=== PATIENT | female | born 1970 | race Hispanic/Latino ===

== ENCOUNTER → 2019-11-15 | Outpatient (CLI) | payer OTHER | END | disposition home or self-care (01) | LOC: OIH 07:57 | PROVIDERS: ATTEND Internal Medicine Cardiovascular Disease | DX: Z13.6 Encounter for screening for cardiovascular disorders (principal); K76.0 Fatty (change of) liver, not elsewhere classified | CPT/HCPCS: 75571 ==

== ENCOUNTER → 2019-12-12 | Outpatient (CLI) | payer BC | END | disposition home or self-care (01) | LOC: SHCH 15:20 → EDUNIT# 15:30 | PROVIDERS: ATTEND Internal Medicine Cardiovascular Disease | DX: R00.2 Palpitations (principal) | CPT/HCPCS: 93306 ==